=== PATIENT | male | born 1960 ===

== ENCOUNTER 2017-09-26 12:32 | Emergency (ER) | payer BC ==
[2017-09-26 12:32] VITALS: BMI 34.2
--- NOTE | 2017-09-26 14:16 | C.PDOC ---
History Of Present Illness Aj Hawley is a 57 y/o male with PMHx of diabetes and hypertension, who presents to the ED after falling off loading dock of truck approx 3-4 feet yesterday. While working on loading platform of a truck, he was standing on edge and fell off, landing on hands and knees. Did not hit head, no LOC. Now complaining of pain to left knee and ankle. Unable to bend knee or bear weight due to pain. Denies any chest pain, shortness of breath, dizziness, headache prior to fall. PMD: None provided Time Seen by Provider: 09/26/17 13:21 Chief Complaint (Nursing): Lower Extremity Problem/Injury History Per: Patient History/Exam Limitations: no limitations Onset/Duration Of Symptoms: Days (x2) Current Symptoms Are (Timing): Still Present Past Medical History Reviewed: Historical Data, Nursing Documentation, Vital Signs Vital Signs: Last Vital Signs Temp 97.8 F 09/26/17 16:01 Pulse 69 09/26/17 16:43 Resp 20 09/26/17 16:43 BP 138/83 09/26/17 16:43 Pulse Ox 99 09/30/17 20:31 - Medical History PMH: Diabetes, HTN Other Surgeries: Right knee surgery Family History: States: Unknown Family Hx - Social History Hx Alcohol Use: Yes Hx Substance Use: No - Immunization History Hx Tetanus Toxoid Vaccination: No Hx Influenza Vaccination: No Hx Pneumococcal Vaccination: No Review Of Systems Cardiovascular: Negative for: Chest Pain Respiratory: Negative for: Shortness of Breath Gastrointestinal: Negative for: Nausea, Vomiting Musculoskeletal: Positive for: Leg Pain (Left knee), Foot Pain (Left ankle) Neurological: Negative for: Headache, Dizziness Physical Exam - Physical Exam Appears: Well, Non-toxic, No Acute Distress Skin: Normal Color, Warm, Dry Head: Atraumatic, Normacephalic Eye(s): bilateral: Normal Inspection, PERRL, EOMI Nose: Normal Neck: Normal, No Midline Cervical Tenderness, Paracervical Tenderness Chest: Symmetrical Cardiovascular: Rhythm Regular, No Murmur Respiratory: Normal Breath Sounds, No Accessory Muscle Use Gastrointestinal/Abdominal: Normal Exam, Soft, No Tenderness Back: Normal Inspection, No Vertebral Tenderness, Other (Pelvis is stable) Extremity: Normal ROM (to right leg), Tenderness (Left lateral malleolar tenderness and swelling to dorsum of left foot. Left knee is diffusely tender and swollen, decreased ROM secondary to pain), Pedal Edema (+1 bilateral pitting edema), Other (Small abrasion to medial left knee) Neurological/Psych: Oriented x3, Normal Speech, Normal Cranial Nerves ED Course And Treatment O2 Sat by Pulse Oximetry: 99 (RA) Pulse Ox Interpretation: Normal - Other Rad ankle left X-Ray: Read By Radiologist Interpretation: IMPRESSION: No definitive evidence of acute displaced fracture nor dislocation. Mild bilateral soft tissue swelling. If symptoms persist or occult fracture suspected clinically recommend repeat radiographs in 5-10 days as most fractures should become radiographically evident in this timeframe. . Note that the 4th metatarsal is not well delineated on this study and if there is concern for fracture of the metatarsal recommend followup dedicated radiographs of the foot. Findings discussed with Dr. Rojas at approximately 2: 50 p.m. with written down and read back verification. knee left X-Ray: Read By Radiologist Interpretation: IMPRESSION: Tricompartmental DJD with irregularity of the medial and lateral margins of the tibial plateau likely due to osteophyte formation. The possibility of on the line nondisplaced fracture cannot be completely excluded. Recommend followup CT scan. Moderate-sized suprapatellar joint effusion and mild anterior soft tissue swelling. Note that this report was placed in [facility] review folder for followup. - CT Scan/US CT Knee Other Rad Studies (CT/US): Read By Radiologist, Radiology Report Reviewed CT/US Interpretation: IMPRESSION: There is a tiny chip fracture arising from the posterior surface of the lateral margin of the tibial plateau with surrounding infiltration and soft tissue swelling as well as moderate-sized joint effusion. Progress Note: Ordered X-Rays of left ankle and left knee. Patient given Tetanus vaccine, Toradol injection, and Tylenol. Medical Decision Making Medical Decision Making: pt reports he did not take his blood pressure medicine today, has elevated bp. took his medis in the ed; bp at 415 pm is 178/105. denies headache, cp, sob. 510 pm bp now 138/83, will d/c 512 pm prellim xray knee read, ct ordered. Disposition Counseled Patient/Family Regarding: Studies Performed, Diagnosis, Need For Followup, Rx Given - Disposition Referrals: Matt Smith III, MD [Staff Provider] - Disposition: HOME/ ROUTINE Disposition Time: 18:52 Condition: SERIOUS Additional Instructions: Please wear knee immobilizer and use crutches until you see Dr Smith for follow up. No weight bearing on left leg. Cold compresses to left knee to help decrease swelling. Take ibuprofen for pain. Prescriptions: Ibuprofen [Motrin] 600 mg PO TID #30 tab Instructions: Swollen Knee Joint (ED) Forms: [facility] (Dominican), General Discharge Instructions - Clinical Impression Clinical Impression: Fracture of tibial plateau, closed - Scribe Statement The provider has reviewed the documentation as recorded by the Scribmicha Mcgee All medical record entries made by the Michaelibe were at my direction and personally dictated by me. I have reviewed the chart and agree that the record accurately reflects my personal performance of the history, physical exam, medical decision making, and the department course for this patient. I have also personally directed, reviewed, and agree with the discharge instructions and disposition.
--- NOTE | 2017-09-26 14:55 | RAD ---
PROCEDURE: Left ankle dated 09/26/2017 HISTORY: lateral malleolus and 4th mt pain s/p fall COMPARISON: No prior FINDINGS: BONES: No definitive evidence of acute displaced fracture nor dislocation. The osseous structures appear grossly intact. Small plantar surface calcaneal enthesophyte noted. There also appears to be a small spur arising from lateral margin of the talus. . Mild bilateral soft tissue swelling JOINTS: Normal. No osteoarthritis. Ankle mortise maintained. Talar dome intact SOFT TISSUES: Mild vascular calcifications. OTHER FINDINGS: None. IMPRESSION: No definitive evidence of acute displaced fracture nor dislocation. Mild bilateral soft tissue swelling. If symptoms persist or occult fracture suspected clinically recommend repeat radiographs in 5-10 days as most fractures should become radiographically evident in this timeframe. . Note that the 4th metatarsal is not well delineated on this study and if there is concern for fracture of the metatarsal recommend followup dedicated radiographs of the foot. Findings discussed with Dr. Rojas at approximately 2:50 p.m. with written down and read back verification.
[2017-09-26 15:39] VITALS: RESP 20; TEMP 97.8
[2017-09-26 16:44] VITALS: BP 138/83; PULSE 69
[2017-09-26 17:12] VITALS: O2SAT 99
--- NOTE | 2017-09-26 17:12 | RAD ---
PROCEDURE: Left knee dated 09/26/2017 HISTORY: Status post fall with pain mid. COMPARISON: No prior study available comparison FINDINGS: BONES: The current study reveals tricompartmental degenerative osteoarthritis. There is slight irregularity of the medial and lateral tibial plateaus likely due to osteophyte formation however the possibility of a nondisplaced fracture cannot be completely excluded. Consider follow-up CT scan for further evaluation to exclude underlying fracture. Marginal medial and smaller marginal lateral osteophyte formation. Prominent posterior patellar osteophytes. Medium size suprapatellar joint effusion. . There also appears to be mild infiltration changes in the anterior soft tissues just caudal to the at inferior tip of the patella. IMPRESSION: Tricompartmental DJD with irregularity of the medial and lateral margins of the tibial plateau likely due to osteophyte formation. The possibility of on the line nondisplaced fracture cannot be completely excluded. Recommend followup CT scan. Moderate-sized suprapatellar joint effusion and mild anterior soft tissue swelling. Note that this report was placed in [facility] review folder for followup.
--- NOTE | 2017-09-26 18:13 | CT ---
PROCEDURE: CT of the left knee dated 09/26/2017. HISTORY: Status post fall ; evaluate for tibial plateau fracture COMPARISON: Comparison made with earlier plain film radiographs of the left knee TECHNIQUE: Contiguous axial images of the left knee were obtained. Coronal and sagittal reformats were generated. This CT exam was performed using one or more of the following dose reduction techniques: Automated exposure control, adjustment of the mA and/or kV according to patient size, and/or use of iterative reconstruction technique. Radiation dose. Total DLP = 274.72 FINDINGS: BONES: The current study reveals subtle tiny chip fracture along the posterior and lateral margin of the left tibial plateau which is associated with overlying subcutaneous infiltration and moderate-sized joint effusion. The remaining osseous structures appear intact. Tricompartmental degenerative osteoarthritis most notably affecting the medial and patellofemoral compartments again noted. There is medial joint space narrowing with subchondral sclerosis and marginal on medial osteophyte formation arising from the tibial plateau and distal femur. Prominent posterior patellar osteophytes are also present. Small lateral osteophytes arising from the lateral tibial plateau and lateral femoral condyle. . . IMPRESSION: There is a tiny chip fracture arising from the posterior surface of the lateral margin of the tibial plateau with surrounding infiltration and soft tissue swelling as well as moderate-sized joint effusion.
== END 2017-09-26 19:27 | disposition home or self-care (01) ==
LOC: C.ER 12:32
DX: S82.142A Displaced bicondylar fracture of left tibia, initial encounter for closed fracture (principal); S80.212A Abrasion, left knee, initial encounter; W17.89XA Other fall from one level to another, initial encounter; Y92.89 Other specified places as the place of occurrence of the external cause; Y99.0 Civilian activity done for income or pay
CPT/HCPCS: 73562; 73610; 73700; 90471; 90715; 96372; 97116; 97161; 99284; G8978; G8979; G8980; J1885